=== PATIENT | female | born 1945 | race Caucasian/White ===

== ENCOUNTER → 2018-01-26 | Outpatient (CLI) | payer OTHER ==
[~2018-01-26] MED LIST: ALLEGRA180 MG; CALCIUM500 MG; EPA/GLA1 SGL; IBU-8800 MG PO; LISINOPRIL20 MG; LOVAZA1 GM; MOTRIN800 MG PO; NEIGHBOR; SIMVASTATIN20 MG; VITAMIN D1000 IU; VITAMIN E; VITAMIN K0.1 MG; ZIAC 10 MG-6.251 TAB
== END | disposition home or self-care (01) ==
LOC: RAD 10:40
DX: M19.041 Primary osteoarthritis, right hand (principal)

== ENCOUNTER → 2018-11-24 | Outpatient (CLI) | payer OTHER | END | disposition home or self-care (01) | LOC: US 13:49 | DX: N18.9 Chronic kidney disease, unspecified (principal) ==